=== PATIENT | female | born 1965 ===

== ENCOUNTER 2022-04-15 16:42 | Inpatient (IN) ==
--- NOTE | 2022-04-15 16:44 | Internal Med History&Physical ---
HPI History of Present Illness Patient information: Note initiated : 04/15/22 at 4:43 pm Service Date, if different from initiated Date: [] Patient: Adeline Garland a 56 y/o F admitted on for Unintentional Overdose. Chief Complaint: [] History of present illness: Ms. Garland is a 56 year old F 56-year-old female with overdose of alcohol and home medications. It was reported that she was upset that she is not getting psychiatric assistance and was arranging an inpt stay. She presented to [facility] in [place]. There were no beds in the region, thus the call to our facility. Home medications that she apparently took in excess included Lexapro, Lisinopril, lamotrigine, bupropion, tramadol, gabapentin, meloxicam, hydroxyzine, olanzapine. In the ER she was drowsy but awakens. She is protecting her airway. GCS was 10-11 initially but improved to 13-14 over the course of the ED. Beta-hCG was negative at the outside facility. Salicylate and acetaminophen levels were unremarkable. Elevated blood alcohol level. Metabolic acidosis noted with a CO2 of 17. Chloride 119. She had a corrected QTC of 493. In speaking with the patient as to why she took the medications and what I read in the report the patient responds, "I do not know why I took all his medications". Asked if she wanted to harm her self and she says she does not. She denies any pains or complaints other than feeling hike her "body will not move correctly." She has some shortness of breath but does not know why, she is not hypoxic, appears a mildy anxious. Denies chest pain. She says she drinks daily but could not quantify how much. Denies any drug use other than admitting to using meth several years ago when she was drinking. She does smoke. Review of Systems: Pertinent positives as above. Denies headache/fever/chills/nausea/vomiting/chest or abdominal pain/cough/dyspnea/diarrhea. Remaining 10 point review of system reviewed and negative MEDS/ALLERGIES Home Medications and Allergies Home Medications Medication Instructions Recorded Confirmed Type bupropion HCl 150 mg 24 hr tablet, 150 mg PO DAILY 04/15/22 04/15/22 History extended release escitalopram oxalate 20 mg tablet 20 mg PO QDAY 04/15/22 04/15/22 History estradiol 1 g VAGINAL 3XW 04/15/22 04/15/22 History gabapentin 300 mg capsule 300 mg PO TID 04/15/22 04/15/22 History hydroxyzine HCl 25 mg tablet 25 mg PO QID PRN MDD 24 04/15/22 04/15/22 History lamotrigine 150 mg tablet 150 mg PO QDAY 04/15/22 04/15/22 History lisinopril 10 mg tablet 10 mg PO QDAY 04/15/22 04/15/22 History meloxicam 15 mg tablet 15 mg PO QDAY 04/15/22 04/15/22 History noreth-ethinyl estradiol-iron 1 tab PO DAILY 04/15/22 04/15/22 History olanzapine 5 mg tablet 5 mg PO QDAY 04/15/22 04/15/22 History sumatriptan succinate 25 mg tablet See Rx Instructions .ROUTE 04/15/22 04/15/22 History .COMPLEX PRN MDD 8 Allergies Allergy/AdvReac Type Severity Reaction Status Date / Time No Known Drug Allergies Allergy Unverified 04/15/22 17:48 EXAM Constitutional Exam: General: awake, No acute Distress Eyes/N/T: EOMI, PERRL,dry MM Head/Neck: neck supple, normocephalic atraumatic CV: RRR, No murmurs, normal s1/s2 Pulm: Clear b/l, no wheezing/rhonchi/rales Abd: soft, nontender, +BS x4 Ext: no clubbing/cyanosis/edema Neuro: minimally drowsy but awakens, no focal deficits, moves all extremities to command although poor coordination, CN 2-12 grossly intact, symmetrical strength b/l upper/lower, sensations intact b/l upper/lower Skin: warm/dry A/P Narrative A/P Narrative: A: *intentional Drug OD & Etoh intoxication: Alcothol + Lexapro/Lisinopril/lamotrigine/bupropion/tramadol/gabapentin/meloxicam/hydroxyzi ne/olanzapine -Patient denies wanting to harm her self *Encephalopathy: 2/2 above *prolonged QT *Bipolar d/o, Depression: *h/o etoh abuse *HTN: on lisinopril *Tobacco abuse: P: -ICU monitoring -Monitor vitals and airway closely -Monitor QTC -prn Benzo -CIWA, vitamins, -Tele psych consult -hold home psych meds for now -CM for discharge needs -Smoking/alcohol cessation counseling > 3 minutes -ppx: lovenox Time Spent With Patient Time: Total time spent is greater than 50% in coordination of care (as documented) at patient's floor/unit and/or counseling patient: Total time spent with greater than 50% in coordination of care (as documented) at patient's floor/unit and/or counseling patient:: Greater than 70 minutes
[2022-04-15] MEDS ORDERED: HALOPERIDOL LACTATE 5 MG/ML VIAL IM PRN (16:45)
[2022-04-15] MEDS ORDERED: MAGNESIUM SULFATE 2 GM/50 ML BAG IV PRN (16:45)
[2022-04-15] MEDS ORDERED: POLYETHYLENE GLYCOL 3350 17 GM PACKET PO PRN (16:45)
[2022-04-15] MEDS ORDERED: chlordiazePOXIDE 25 MG CAPSULE PO PRN (16:45)
[2022-04-15] MEDS ORDERED: SENNOSIDES 1 TABLET PO PRN (16:45)
[2022-04-15] MEDS ORDERED: POTASSIUM CHLORIDE 20 MEQ TABLET PO PRN ×2 (16:45)
[2022-04-15] MEDS ORDERED: POTASSIUM CHLORIDE 40 MEQ in DEXTROSE 5% IN WATER 500 ML IV PRN (16:45)
[2022-04-15] MEDS ORDERED: ACETAMINOPHEN 325 MG TABLET PO PRN (16:45)
[2022-04-15] MEDS ORDERED: IPRATROPIUM/ALBUTEROL 3 ML AMPUL.NEB NEB PRN (16:45)
[2022-04-15] MEDS ORDERED: ONDANSETRON 4 MG/2 ML VIAL IV PRN (16:45)
[2022-04-15] MEDS ORDERED: LORazepam 2 MG/ML VIAL IV PRN (16:45)
[2022-04-15] MEDS ORDERED: cloNIDine HCL 0.1 MG TABLET PO PRN (19:30)
[2022-04-15] MEDS ORDERED: DEXTROSE 5%-LR 1,000 ML IV ONE (19:31)
[2022-04-15] MEDS ORDERED: hydrOXYzine 25 MG TABLET PO PRN (19:32)
[2022-04-15] MEDS ORDERED: THIAMINE 100 MG in 0.9 % SODIUM CHLORIDE 50 ML IV SCH (20:00)
[2022-04-15] MEDS: THIAMINE 100 MG in 0.9 % SODIUM CHLORIDE 50 ML IV SCH (20:09)
[2022-04-15] MEDS: DOCUSATE SODIUM 100 MG CAPSULE PO SCH (20:10)
[2022-04-15] MEDS ORDERED: SUMAtriptan SUCCINATE 50 MG TABLET PO PRN (20:11)
[2022-04-15] MEDS ORDERED: THIAMINE 100 MG/ML VIAL ONE (20:13)
[2022-04-15] MEDS ORDERED: NICOTINE 21 MG PATCH TOPICAL SCH (20:15)
[2022-04-15] MEDS ORDERED: FOLIC ACID 1 MG TABLET PO SCH (20:15)
[2022-04-15] MEDS: MELATONIN 3 MG TABLET PO SCH (20:19)
[2022-04-15] MEDS: 0.9 % SODIUM CHLORIDE 10 ML SYRINGE IV SCH (20:19)
[2022-04-15] MEDS ORDERED: 0.9 % SODIUM CHLORIDE 10 ML SYRINGE IV SCH (22:00)
[2022-04-16] MEDS: 0.9 % SODIUM CHLORIDE 10 ML SYRINGE IV SCH ×3 (04:41→20:57)
[2022-04-16 06:11] LABS: Basophils # (Auto) 0.09 K/mcL (0.00-0.30); Basophils % (Auto) 1.3 % (0.0-2.0); Eosinophils # (Auto) 0.28 K/mcL (0.00-0.70); Eosinophils % (Auto) 3.9 % (0.0-7.0); Hemoglobin 10.3 g/dL (11.2-15.7); Lymphocytes # (Auto) 2.59 K/mcL (1.50-4.80); Lymphocytes % (Auto) 36.5 % (15.5-49.0); Mean Cell Volume 102.7 fL (80.0-100.0); Mean Corpuscular HGB Conc 30.3 g/dL (31.0-36.0); Mean Platelet Volume 9.8 fL (7.4-10.4); Monocytes % (Auto) 7.1 % (1.0-12.0); Neutrophils % (Auto) 51.2 % (38.0-78.0); Platelet Count 323 K/mcL (140-440); RBC 3.31 M/mcL (3.59-5.38); Red Cell Distribution Width 15.9 % (11.5-14.5); WBC 7.1 K/mcL (4.5-11.0)
[2022-04-16 06:38] LABS: ALT/SGPT 20 U/L (<40); AST/SGOT 25 U/L (<32); Albumin 3.2 gm/dL (3.2-5.2); Albumin/Globulin Ratio 1.3 (1.0-2.3); Alkaline Phosphatase 62 U/L (39-117); Bilirubin,Direct < 0.2 mg/dL (0-0.3); Bilirubin,Total 0.4 mg/dL (0.1-1.0); Blood Urea Nitrogen 22 mg/dL (6-20); Calcium 7.9 mg/dL (8.6-10.4); Carbon Dioxide 19 mmol/L (22-30); Chloride 112 mmol/L (96-108); Globulin 2.5 gm/dL (2.2-3.7); Glomerular Filtration Rate 82; Glucose 85 mg/dL (70-105); Lactate Dehydrogenase 168 U/L (135-225); Phosphorous 3.2 mg/dL (2.5-4.5); Triglycerides 122 mg/dL (<150); Uric Acid 4.4 mg/dL (2.5-8.0)
[2022-04-16] MEDS: PANTOPRAZOLE 40 MG VIAL IV SCH (07:13)
[2022-04-16] MEDS ORDERED: CALCIUM GLUCONATE 4.65 MEQ/10 ML VIAL IV ONE (07:54)
[2022-04-16] MEDS ORDERED: 0.45 % SODIUM CHLORIDE 1,000 ML IV ONE (07:56)
--- NOTE | 2022-04-16 07:56 | Internal Med Progress Note ---
SUBJECTIVE Subjective Patient information: Note initiated : 04/16/22 at 7:51 am Service Date, if different from initiated Date: [] Patient: Adeline Garland 56 y/o F admitted on 04/15/22 for Drug overdose, AMS, QTC. Chief Complaint: [] Interval history: History of present illness: Ms. Garland is a 56 year old F 56-year-old female with overdose of alcohol and home medications. It was reported that she was upset that she is not getting psychiatric assistance and was arranging an inpt stay. She presented to in [place]. There were no beds in the region, thus the call to our facility. Home medications that she apparently took in excess included Lexapro, Lisinopril, lamotrigine, bupropion, tramadol, gabapentin, meloxicam, hydroxyzine, olanzapine. In the ER she was drowsy but awakens. She is protecting her airway. GCS was 10-11 initially but improved to 13-14 over the course of the ED. Beta-hCG was negative at the outside facility. Salicylate and acetaminophen levels were unremarkable. Elevated blood alcohol level. Metabolic acidosis noted with a CO2 of 17. Chloride 119. She had a corrected QTC of 493. In speaking with the patient as to why she took the medications and what I read in the report the patient responds, "I do not know why I took all his medications". Asked if she wanted to harm her self and she says she does not. She denies any pains or complaints other than feeling hike her "body will not move correctly." She has some shortness of breath but does not know why, she is not hypoxic, appears a mildy anxious. Denies chest pain. She says she drinks daily but could not quantify how much. Denies any drug use other than admitting to using meth several years ago when she was drinking. She does smoke. 04/16 Constitutional Vitals: Vital Signs Temp Pulse Resp BP Pulse Ox 97.5 F 69 13 106/95 97 04/16/22 02:01 04/16/22 07:01 04/16/22 07:01 04/16/22 07:01 04/16/22 07:01 Period Temp Pulse Resp BP Sys/Garcia Pulse Ox Last 24 Hr 97.1 F-98.1 F 68-82 93-135/63-95 95-98 Intake and Output 04/15/22 04/16/22 04/16/22 21:59 05:59 13:59 Intake Total 651 200 Output Total 375 300 Balance 276 -100 Weight 76.657 kg Intake & Output: Intake & Output 04/15/22 04/16/22 04/16/22 21:59 05:59 13:59 Intake Total 651 200 Output Total 375 300 Balance 276 -100 Weight 76.657 kg Intake: IV 51 Vitamin B1 100 mg In Sodium 51 Chloride 0.9% 50 ml @ 50 mls/hr IV DAILY [facility] Rx#:[id number] Oral 600 200 Output: Urine Catheter Amount 375 300 Other: Urine Appearance Clear Clear Uretheral ([place]) Clear Clear Urine Color Bright Yellow Bright Yellow Uretheral ([place]) Pale Pale Urine Odor Normal Normal Exam: General: awake, No acute Distress Eyes/N/T: EOMI, Head/Neck: neck supple, CV: RRR, No murmurs, Pulm: Clear b/l, no wheezing/rhonchi/rales Abd: soft, nontender, +BS x4 Ext: no clubbing/cyanosis/edema Neuro: alert, no focal deficits, moves all extremities to command although poor coordination, Skin: warm/dry OBJ DATA Labs CBC & Chem 7: 04/16/22 05:02 04/16/22 05:02 Labs: Abnormal Lab Results 04/16/22 04/16/22 05:02 05:02 RBC 3.31 L Hgb 10.3 L Hct 34.0 L MCV 102.7 H MCHC 30.3 L RDW 15.9 H Chloride 112 H Carbon Dioxide 19 L BUN 22 H Calcium 7.9 L Total Protein 5.7 L Meds: Medications Acetaminophen (Acetaminophen 325 Mg Tablet) 650 mg PO Q6HP PRN; Protocol PRN Reason: Per Pain Protocol/Fever > 101 Albuterol/Ipratropium (Ipratropium/Albuterol 3 Ml Ampul.Neb) 3 ml NEB Q4HP PRN PRN Reason: Shortness Of Breath Chlordiazepoxide HCl (Chlordiazepoxide 25 Mg Capsule) 25 mg PO Q4HP PRN PRN Reason: Alcohol Withdrawal/Assess CIWA Clonidine HCl (Clonidine Hcl 0.1 Mg Tablet) 0.1 mg PO Q4HP PRN PRN Reason: Hypertension, SBP >150 Docusate Sodium (Docusate Sodium 100 Mg Capsule) 100 mg PO BID [facility] Last Admin: 04/15/22 20:10 Dose: 100 mg Documented by: Enoxaparin Sodium (Enoxaparin 40 Mg/0.4 Ml Syringe) 40 mg SQ DAILY [facility] Folic Acid (Folic Acid 1 Mg Tablet) 1 mg PO DAILY [facility] Haloperidol Lactate (Haloperidol Lactate 5 Mg/Ml Vial) 0.5 mg IM Q2HP PRN PRN Reason: Alcohol Withdrawal/Assess CIWA Hydroxyzine HCl (Hydroxyzine 25 Mg Tablet) 25 mg PO QID PRN PRN Reason: Anxiety Potassium Chloride 40 meq/ (Dextrose) 520 mls @ 130 mls/hr IV UD PRN PRN Reason: Potassium < 3 Magnesium Sulfate (Magnesium Sulfate) 2 gm in 50 mls @ 25 mls/hr IV UD PRN PRN Reason: Magnesium </= 1.6 Thiamine HCl 100 mg/ Sodium (Chloride) 51 mls @ 50 mls/hr IV DAILY [facility] Last Infusion: 04/15/22 21:20 Dose: Infused Documented by: Iron Carb/Multivit/[employer] [place]/Folic Acid (Multivit,Ther Iron,Ca,Fa & Min 1 Tablet) 1 tab PO DAILY [facility] Lamotrigine (Lamotrigine 100 Mg Tablet) 150 mg PO QDAY [facility] Lorazepam (Lorazepam 2 Mg/Ml Vial) 0 mg IV Q4HP PRN; Protocol PRN Reason: Alcohol Withdrawal/Assess CIWA Lorazepam (Lorazepam 2 Mg/Ml Vial) 1 mg IV Q2-4HP PRN PRN Reason: ANXIETY/SEDATION Melatonin (Melatonin 3 Mg Tablet) 6 mg PO QHS [facility] Last Admin: 04/15/22 20:19 Dose: 6 mg Documented by: Nicotine (Nicotine 21 Mg Patch) 21 mg TOPICAL DAILY@1000 [facility] Ondansetron HCl (Ondansetron 4 Mg/2 Ml Vial) 4 mg IV Q4HP PRN PRN Reason: Nausea And Vomiting Pantoprazole Sodium (Pantoprazole 40 Mg Vial) 40 mg IV QAMAC [facility] Last Admin: 04/16/22 07:13 Dose: 40 mg Documented by: Polyethylene Glycol (Polyethylene Glycol 3350 17 Gm Packet) 17 gm PO DAILYP PRN PRN Reason: Constipation Potassium Chloride (Potassium Chloride 20 Meq Tablet) 40 meq PO UD PRN PRN Reason: Potssium is 3-3.5 Potassium Chloride (Potassium Chloride 20 Meq Tablet) 40 meq PO UD PRN PRN Reason: Potassium < 3 Senna (Sennosides 1 Tablet) 2 tab PO DAILYP PRN PRN Reason: Constipation Sodium Chloride (0.9 % Sodium Chloride 10 Ml Syringe) 10 ml IV Q8 [facility] Last Admin: 04/16/22 04:41 Dose: Not Given Documented by: Sumatriptan Succinate (Sumatriptan Succinate 50 Mg Tablet) 25 mg PO .COMPLEX PRN PRN Reason: Migraine Headache A/P Narrative A/P Narrative: A: *intentional Drug OD with Etoh intoxication & now w/d: Alcothol + L exapro/Lisinopril/lamotrigine/bupropion/tramadol/gabapentin/meloxicam/hydroxyzin e/olanzapine -Patient denies wanting to harm her self *Encephalopathy: 2/2 above, improving but worried about worsening etoh w/d *prolonged QT: *Metabolic Acidosis: 2/2 above *volume depletion: *Anemia, macro: *Bipolar d/o, Depression: *h/o etoh abuse with liquor: *HTN: on lisinopril *Tobacco abuse: P: -ICU monitoring -Monitor vitals and airway closely -IVF -Monitor QTC -replete electroytes -prn Benzo -CIWA, vitamins, -Tele psych consult -hold home psych meds for now -check b12/folate -CM for discharge needs -Smoking/alcohol cessation counseling > 3 minutes, nicotine patch -ppx: lovenox Time Spent With Patient Time: Total time spent is greater than 50% in coordination of care (as documented) at patient's floor/unit and/or counseling patient: Total time spent with greater than 50% in coordination of care (as documented) at patient's floor/unit and/or counseling patient:: 35 - 50 minutes QUALITY VTE Deep Vein Thrombosis/Pulmonary Embolism Present on Admission: No
[2022-04-16] MEDS ORDERED: FOLIC ACID 1 MG TABLET PO SCH (09:00)
[2022-04-16] MEDS: CALCIUM GLUCONATE 4.65 MEQ in DEXTROSE 5% IN WATER 50 ML IV SCH ×2 (09:02→10:01)
[2022-04-16] MEDS: ENOXAPARIN 40 MG/0.4 ML SYRINGE SQ SCH (10:00)
[2022-04-16] MEDS: NICOTINE 21 MG PATCH TOPICAL SCH (10:00)
[2022-04-16] MEDS: lamoTRIgine 100 MG TABLET PO SCH (10:00)
[2022-04-16] MEDS: DOCUSATE SODIUM 100 MG CAPSULE PO SCH ×2 (10:00→20:54)
[2022-04-16] MEDS: FOLIC ACID 1 MG TABLET PO SCH (10:00)
[2022-04-16] MEDS: MULTIVIT,THER IRON,CA,FA & MIN 1 TABLET PO SCH (10:00)
[2022-04-16] MEDS: CYANOCOBALAMIN (VITAMIN B-12) 500 MCG TABLET PO SCH (10:42)
[2022-04-16] MEDS: THIAMINE 100 MG in 0.9 % SODIUM CHLORIDE 50 ML IV SCH (10:42)
[2022-04-16] MEDS: MELATONIN 3 MG TABLET PO SCH (20:55)
[2022-04-17] MEDS: 0.9 % SODIUM CHLORIDE 10 ML SYRINGE IV SCH (05:23)
[2022-04-17 06:28] LABS: Basophils # (Auto) 0.07 K/mcL (0.00-0.30); Basophils % (Auto) 1.1 % (0.0-2.0); Eosinophils # (Auto) 0.37 K/mcL (0.00-0.70); Eosinophils % (Auto) 5.8 % (0.0-7.0); Hemoglobin 11.2 g/dL (11.2-15.7); Lymphocytes # (Auto) 1.85 K/mcL (1.50-4.80); Lymphocytes % (Auto) 28.9 % (15.5-49.0); Mean Cell Volume 98.6 fL (80.0-100.0); Mean Platelet Volume 10.1 fL (7.4-10.4); Monocytes # (Auto) 0.48 K/mcL (0.10-0.90); Monocytes % (Auto) 7.5 % (1.0-12.0); Neutrophils % (Auto) 56.7 % (38.0-78.0); Platelet Count 310 K/mcL (140-440); RBC 3.55 M/mcL (3.59-5.38); Red Cell Distribution Width 14.7 % (11.5-14.5); WBC 6.4 K/mcL (4.5-11.0)
[2022-04-17 06:47] LABS: ALT/SGPT 21 U/L (<40); AST/SGOT 27 U/L (<32); Albumin 3.3 gm/dL (3.2-5.2); Albumin/Globulin Ratio 1.3 (1.0-2.3); Alkaline Phosphatase 63 U/L (39-117); Bilirubin,Direct < 0.2 mg/dL (0-0.3); Bilirubin,Total 0.3 mg/dL (0.1-1.0); Blood Urea Nitrogen 17 mg/dL (6-20); Calcium 8.5 mg/dL (8.6-10.4); Carbon Dioxide 18 mmol/L (22-30); Chloride 110 mmol/L (96-108); Globulin 2.5 gm/dL (2.2-3.7); Glomerular Filtration Rate 82; Glucose 90 mg/dL (70-105); Lactate Dehydrogenase 176 U/L (135-225); Phosphorous 3.5 mg/dL (2.5-4.5); Triglycerides 89 mg/dL (<150); Uric Acid 4.8 mg/dL (2.5-8.0)
[2022-04-17] MEDS: PANTOPRAZOLE 40 MG VIAL IV SCH (06:49)
[2022-04-17] MEDS: LORazepam 2 MG/ML VIAL IV PRN ×2 (07:04→10:48)
--- NOTE | 2022-04-17 07:39 | Internal Med Progress Note ---
SUBJECTIVE Subjective Patient information: Note initiated : 04/17/22 at 7:36 am Service Date, if different from initiated Date: [] Patient: Adeline Garland a 56 y/o F admitted on 04/15/22 for Drug overdose, AMS, QTC. Chief Complaint: [] Interval history: History of present illness: Ms. Garland is a 56 year old F 56-year-old female with overdose of alcohol and home medications. It was reported that she was upset that she is not getting psychiatric assistance and was arranging an inpt stay. She presented to [facility] in [place]. There were no beds in the region, thus the call to our facility. Home medications that she apparently took in excess included Lexapro, Lisinopril, lamotrigine, bupropion, tramadol, gabapentin, meloxicam, hydroxyzine, olanzapine. In the ER she was drowsy but awakens. She is protecting her airway. GCS was 10-11 initially but improved to 13-14 over the course of the ED. Beta-hCG was negative at the outside facility. Salicylate and acetaminophen levels were unremarkable. Elevated blood alcohol level. Metabolic acidosis noted with a CO2 of 17. Chloride 119. She had a corrected QTC of 493. In speaking with the patient as to why she took the medications and what I read in the report the patient responds, "I do not know why I took all his medications". Asked if she wanted to harm her self and she says she does not. She denies any pains or complaints other than feeling hike her "body will not move correctly." She has some shortness of breath but does not know why, she is not hypoxic, appears a mildy anxious. Denies chest pain. She says she drinks daily but could not quantify how much. Denies any drug use other than admitting to using meth several years ago when she was drinking. She does smoke. 04/16 Patient feeling much better. Did feel like she was having a little bit of with drawl and was given some Ativan this morning and feels better. Better coordination and her body movements. Psych consult. Review of Systems: denies headache/fever/chills/nausea/vomiting/chest or abdominal pain/cough/dyspnea/diarrhea. Otherwise see above. Constitutional Vitals: Vital Signs Temp Pulse Resp BP Pulse Ox 97.6 F 73 13 133/107 97 04/17/22 02:01 04/17/22 06:01 04/17/22 06:01 04/17/22 06:01 04/17/22 06:01 Period Temp Pulse Resp BP Sys/Garcia Pulse Ox Last 24 Hr 97.1 F-98.3 F 64-82 12-20 108-148/77-107 95-98 Intake and Output 04/16/22 04/17/22 04/17/22 21:59 05:59 13:59 Intake Total 1930 570 Output Total 1700 1400 Balance 230 -830 Weight 78.517 kg Intake & Output: Intake & Output 04/16/22 04/17/22 04/17/22 21:59 05:59 13:59 Intake Total 1930 570 Output Total 1700 1400 Balance 230 -830 Weight 78.517 kg Intake: IV 1000 Sodium Chloride 0.45% 1,000 ml 1000 @ 84 mls/hr IV .[id number] ONE Rx# :[id number] Oral 930 570 Output: Urine Catheter Amount 1375 Void Amount 325 1400 Other: Urine Appearance Sediment Clear Urine Color Straw Pale Urine Odor Normal Normal Exam: General: awake, No acute Distress Eyes/N/T: EOMI, Head/Neck: neck supple, CV: RRR, No murmurs, Pulm: Clear b/l, no wheezing/rhonchi/rales Abd: soft, nontender, +BS x4 Ext: no clubbing/cyanosis/edema Neuro: alert, no focal deficits, moves all extremities Skin: warm/dry OBJ DATA Labs CBC & Chem 7: 04/17/22 05:10 04/17/22 05:10 Labs: Abnormal Lab Results 04/17/22 04/17/22 04/16/22 05:10 05:10 05:02 RBC 3.55 L 3.31 L Hgb 10.3 L Hct 34.0 L MCV 102.7 H MCHC 30.3 L RDW 14.7 H 15.9 H Chloride 110 H Carbon Dioxide 18 L BUN Calcium 8.5 L Total Protein 5.8 L 04/16/22 05:02 RBC Hgb Hct MCV MCHC RDW Chloride 112 H Carbon Dioxide 19 L BUN 22 H Calcium 7.9 L Total Protein 5.7 L Meds: Medications Acetaminophen (Acetaminophen 325 Mg Tablet) 650 mg PO Q6HP PRN; Protocol PRN Reason: Per Pain Protocol/Fever > 101 Albuterol/Ipratropium (Ipratropium/Albuterol 3 Ml Ampul.Neb) 3 ml NEB Q4HP PRN PRN Reason: Shortness Of Breath Chlordiazepoxide HCl (Chlordiazepoxide 25 Mg Capsule) 25 mg PO Q4HP PRN PRN Reason: Alcohol Withdrawal/Assess CIWA Clonidine HCl (Clonidine Hcl 0.1 Mg Tablet) 0.1 mg PO Q4HP PRN PRN Reason: Hypertension, SBP >150 Cyanocobalamin (Cyanocobalamin (Vitamin B-12) 500 Mcg Tablet) 1,000 mcg PO JOSE L Y [facility] Last Admin: 04/16/22 10:42 Dose: 1,000 mcg Documented by: Docusate Sodium (Docusate Sodium 100 Mg Capsule) 100 mg PO BID [facility] Last Admin: 04/16/22 20:54 Dose: 100 mg Documented by: Enoxaparin Sodium (Enoxaparin 40 Mg/0.4 Ml Syringe) 40 mg SQ DAILY [facility] Last Admin: 04/16/22 10:00 Dose: 40 mg Documented by: Folic Acid (Folic Acid 1 Mg Tablet) 1 mg PO DAILY [facility] Last Admin: 04/16/22 10:00 Dose: 1 mg Documented by: Haloperidol Lactate (Haloperidol Lactate 5 Mg/Ml Vial) 0.5 mg IM Q2HP PRN PRN Reason: Alcohol Withdrawal/Assess CIWA Hydroxyzine HCl (Hydroxyzine 25 Mg Tablet) 25 mg PO QID PRN PRN Reason: Anxiety Potassium Chloride 40 meq/ (Dextrose) 520 mls @ 130 mls/hr IV UD PRN PRN Reason: Potassium < 3 Magnesium Sulfate (Magnesium Sulfate) 2 gm in 50 mls @ 25 mls/hr IV UD PRN PRN Reason: Magnesium </= 1.6 Thiamine HCl 100 mg/ Sodium (Chloride) 51 mls @ 50 mls/hr IV DAILY [facility] Last Infusion: 04/16/22 11:44 Dose: Infused Documented by: Iron Carb/Multivit/[place]/Folic Acid (Multivit,Ther Iron,Ca,Fa & Min 1 Tablet) 1 tab PO DAILY [facility] Last Admin: 04/16/22 10:00 Dose: 1 tab Documented by: Lamotrigine (Lamotrigine 100 Mg Tablet) 150 mg PO QDAY [facility] Last Admin: 04/16/22 10:00 Dose: 150 mg Documented by: Lorazepam (Lorazepam 2 Mg/Ml Vial) 0 mg IV Q4HP PRN; Protocol PRN Reason: Alcohol Withdrawal/Assess CIWA Lorazepam (Lorazepam 2 Mg/Ml Vial) 1 mg IV Q2-4HP PRN PRN Reason: ANXIETY/SEDATION Last Admin: 04/17/22 07:04 Dose: 0.5 mg Documented by: Melatonin (Melatonin 3 Mg Tablet) 6 mg PO QHS [facility] Last Admin: 04/16/22 20:55 Dose: 6 mg Documented by: Nicotine (Nicotine 21 Mg Patch) 21 mg TOPICAL DAILY@1000 [facility] Last Admin: 04/16/22 10:00 Dose: 21 mg Documented by: Ondansetron HCl (Ondansetron 4 Mg/2 Ml Vial) 4 mg IV Q4HP PRN PRN Reason: Nausea And Vomiting Pantoprazole Sodium (Pantoprazole 40 Mg Vial) [facility] Last Admin: 04/17/22 06:49 Dose: 40 mg Documented by: Polyethylene Glycol (Polyethylene Glycol 3350 17 Gm Packet) 17 gm PO DAILYP PRN PRN Reason: Constipation Potassium Chloride (Potassium Chloride 20 Meq Tablet) 40 meq PO UD PRN PRN Reason: Potssium is 3-3.5 Potassium Chloride (Potassium Chloride 20 Meq Tablet) 40 meq PO UD PRN PRN Reason: Potassium < 3 Senna (Sennosides 1 Tablet) 2 tab PO DAILYP PRN PRN Reason: Constipation Sodium Chloride (0.9 % Sodium Chloride 10 Ml Syringe) 10 ml IV Q8 [facility] Last Admin: 04/17/22 05:23 Dose: 10 ml Documented by: Sumatriptan Succinate (Sumatriptan Succinate 50 Mg Tablet) 25 mg PO .COMPLEX PRN PRN Reason: Migraine Headache A/P Narrative A/P Narrative: A: *intentional Drug OD with Etoh intoxication & now mild w/d: Alcohol + Lexapro/Lisinopril/lamotrigine/bupropion/tramadol/g abapentin/meloxicam/hydroxyzine/olanzapine -Patient denies wanting to harm her self *Encephalopathy: 2/2 above, improving but worried about worsening etoh w/d *prolonged QT: 2/2 above *Metabolic Acidosis: 2/2 above *volume depletion: improved *Anemia, macro: b12/folate ok *Bipolar d/o, Depression: *h/o etoh abuse with liquor: *HTN: on lisinopril *Tobacco abuse: P: -IVF d/c -Monitor QTC -replete electroytes -prn Benzo -CIWA, vitamins, -Tele psych consult -hold home psych meds for now -CM for discharge needs -Smoking/alcohol cessation counseling, nicotine patch -ppx: lovenox Time Spent With Patient Time: Total time spent is greater than 50% in coordination of care (as documented) at patient's floor/unit and/or counseling patient: Total time spent with greater than 50% in coordination of care (as documented) at patient's floor/unit and/or counseling patient:: 25 - 35 minutes QUALITY VTE Deep Vein Thrombosis/Pulmonary Embolism Present on Admission: No
[2022-04-17] MEDS: ENOXAPARIN 40 MG/0.4 ML SYRINGE SQ SCH (09:03)
[2022-04-17] MEDS: FOLIC ACID 1 MG TABLET PO SCH (09:03)
[2022-04-17] MEDS: MULTIVIT,THER IRON,CA,FA & MIN 1 TABLET PO SCH (09:04)
[2022-04-17] MEDS: CYANOCOBALAMIN (VITAMIN B-12) 500 MCG TABLET PO SCH (09:04)
[2022-04-17] MEDS: DOCUSATE SODIUM 100 MG CAPSULE PO SCH (09:04)
[2022-04-17] MEDS: lamoTRIgine 100 MG TABLET PO SCH (09:08)
[2022-04-17] MEDS: THIAMINE 100 MG in 0.9 % SODIUM CHLORIDE 50 ML IV SCH (09:13)
--- NOTE | 2022-04-17 09:52 | Discharge Summary ---
Discharge Provider Provider IMPORTANT FOLLOW-UP INFORMATION FOR PCP: Patient information: Note initiated : 04/17/22 at 9:51 am Service Date, if different from initiated Date: [] Patient: Adeline Garland 56 y/o F admitted on 04/15/22 for Drug overdose, AMS, QTC. Chief Complaint: [] Date of admission: 04/15/22 19:01 Discharge date: 04/17/22 Primary care physician: Other Provider COURSE Hospital Course Hospital course: History of present illness: Ms. Garland is a 56 year old F 56-year-old female with overdose of alcohol and home medications. It was reported that she was upset that she is not getting psychiatric assistance and was arranging an inpt stay. She presented to [facility] in [place]. There were no beds in the region, thus the call to our facility. Home medications that she apparently took in excess included Lexapro, Lisinopril, lamotrigine, bupropion, tramadol, gabapentin, meloxicam, hydroxyzine, olanzapine. In the ER she was drowsy but awakens. She is protecting her airway. GCS was 10-11 initially but improved to 13-14 over the course of the ED. Beta-hCG was negative at the outside facility. Salicylate and acetaminophen levels were unremarkable. Elevated blood alcohol level. Metabolic acidosis noted with a CO2 of 17. Chloride 119. She had a corrected QTC of 493. In speaking with the patient as to why she took the medications and what I read in the report the patient responds, "I do not know why I took all his medications". Asked if she wanted to harm her self and she says she does not. She denies any pains or complaints other than feeling hike her "body will not move correctly." She has some shortness of breath but does not know why, she is not hypoxic, appears a mildy anxious. Denies chest pain. She says she drinks daily but could not quantify how much. Denies any drug use other than admitting to using meth several years ago when she was drinking. She does smoke. 04/17 Patient feeling much better. Did feel like she was having a little bit of with drawl and was given some Ativan this morning and feels better. Better coordination and her body movements. Psych consult. Patient will go to [facility] detox today in [place]. A: *intentional Drug OD with Etoh intoxication & now mild w/d: Alcohol + Lexapro/Lisinopril/lamotrigine/bupropion/tramadol/gabapentin/meloxicam/hydroxyzi ne/olanzapine -Patient denies wanting to harm her self *Encephalopathy: 2/2 above, improving but worried about worsening etoh w/d *prolonged QT: 2/2 above *Metabolic Acidosis: 2/2 above *volume depletion: improved *Anemia, macro: b12/folate ok *Bipolar d/o, Depression: *h/o etoh abuse with liquor: *HTN: on lisinopril *Tobacco abuse: P: -Follow-up closely with psychiatry, possible inpatient stay Discharge diagnosis: Drug overdose alcohol intoxication withdrawal Encephalopathy prolonged QT m Secondary discharge diagnosis: Anemia bipolar disorder depression alcohol abuse hypertension tobacco abuse Time Spent with Patient Time attestation: Total time spent providing and/or coordinating discharge services: Time spent: Greater than 30 minutes EXAM Constitutional Vitals: Temp Pulse Resp BP Pulse Ox 98.2 F 81 13 146/122 97 04/17/22 08:17 04/17/22 08:17 04/17/22 06:01 04/17/22 08:17 04/17/22 08:17 Discharge Data Data Completed and Pending Labs on day of discharge: Labs from last 24 hours 04/17/22 04/17/22 04/16/22 05:10 05:10 08:51 WBC 6.4 RBC 3.55 L Hgb 11.2 Hct 35.0 MCV 98.6 MCH 31.5 MCHC 32.0 RDW 14.7 H Plt Count 310 MPV 10.1 Neut % (Auto) 56.7 Lymph % (Auto) 28.9 [place] % (Auto) 7.5 Eos % (Auto) 5.8 Baso % (Auto) 1.1 Lymph # (Auto) 1.85 [place] # (Auto) 0.48 Eos # (Auto) 0.37 Baso # (Auto) 0.07 Absolute Neutrophils 3.63 Sodium 137 Potassium 4.5 Chloride 110 H Carbon Dioxide 18 L Anion Gap 9.0 BUN 17 Creatinine 0.8 GFR Calculation 82 Glucose 90 Uric Acid 4.8 Calcium 8.5 L Phosphorus 3.5 Magnesium 1.9 Total Bilirubin 0.3 Direct Bilirubin < 0.2 GGT 21 AST 27 ALT 21 Alkaline Phosphatase 63 Lactate Dehydrogenase 176 Total Protein 5.8 L Albumin 3.3 Globulin 2.5 Albumin/Globulin Ratio 1.3 Triglycerides 89 Vitamin B12 Folate 15.1 04/16/22 08:51 WBC RBC Hgb Hct MCV MCH MCHC RDW Plt Count MPV Neut % (Auto) Lymph % (Auto) [place] % (Auto) Eos % (Auto) Baso % (Auto) Lymph # (Auto) [place] # (Auto) Eos # (Auto) Baso # (Auto) Absolute Neutrophils Sodium Potassium Chloride Carbon Dioxide Anion Gap BUN Creatinine GFR Calculation Glucose Uric Acid Calcium Phosphorus Magnesium Total Bilirubin Direct Bilirubin GGT AST ALT Alkaline Phosphatase Lactate Dehydrogenase Total Protein Albumin Globulin Albumin/Globulin Ratio Triglycerides Vitamin B12 462.1 Folate Discharge Plan Patient/Caregiver Discharge Instructions Activity: increase activity as tolerated Diet: Regular Diet Activity Restrictions/Additional Instructions: Follow-up closely with psychiatry. Will go to [facility] detox today in [place]. Prescriptions: Continued meloxicam 15 mg Tablet 15 mg PO QDAY 0RF sumatriptan succinate 25 mg Tablet See Rx Instructions .ROUTE .COMPLEX MDD 8 PRN (Reason: Migraine Headache) 0RF Rx Instructions: 25 mg orally, may repeat in 2 hours if needed. max 8 tabs in 24 hours. estradiol 0.01 % (0.1 mg/gram) Cream 1 g VAGINAL 3XW 0RF Rx Instructions: Use once daily for 14 dys (started on 04/08/2022) then 2-3 x/wk. escitalopram oxalate 20 mg Tablet 20 mg PO QDAY 0RF lisinopril 10 mg Tablet 10 mg PO QDAY 0RF gabapentin 300 mg Capsule 300 mg PO TID 0RF bupropion HCl 150 mg Tablet Extended Release 24 Hr 150 mg PO DAILY 0RF olanzapine 5 mg Tablet 5 mg PO QDAY 0RF hydroxyzine HCl 25 mg Tablet 25 mg PO QID MDD 24 PRN (Reason: Anxiety) 0RF Rx Instructions: Take 1-4 mg PO PRN anxiety Q6H noreth-ethinyl estradiol-iron 1 tab PO DAILY 0RF Rx Instructions: 1mg-5mcg tab lamotrigine 150 mg Tablet 150 mg PO QDAY 0RF Follow Up Plan Patient Disposition: Home, Self-Care Prognosis: Fair Overall status at discharge: patient is progressing back to baseline Discharge Orders: Discharge Order (Routine); Ordered 04/17/22 Ordered By: Milo Staton QUALITY VTE Deep Vein Thrombosis/Pulmonary Embolism Present on Admission: No
[2022-04-17] MEDS: NICOTINE 21 MG PATCH TOPICAL SCH (09:55)
--- NOTE | 2022-04-18 13:38 | EKG ---
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 Measurements Intervals [place] Rate: 80 P: 58 FL: 155 QRS: 51 QRSD: 90 T: 51 QT: 414 QTc: 478 Interpretive Statements Sinus rhythm Electronically Signed On 04-18-2022 13:38:46 PDT by Jonnathan June M.D. /[id number]
--- NOTE | 2022-04-18 13:41 | EKG ---
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 Measurements Intervals [place] Rate: 72 P: 65 IN: 178 QRS: 62 QRSD: 97 T: 57 QT: 457 QTc: 501 Interpretive Statements Sinus rhythm Borderline prolonged QT interval Electronically Signed On 04-18-2022 13:41:43 PDT by Jonnathan June M.D. /[id number]
--- NOTE | 2022-04-18 13:42 | EKG ---
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 Measurements Intervals [place] Rate: 74 P: 64 FL: 176 QRS: 67 QRSD: 86 T: 59 QT: 428 QTc: 475 Interpretive Statements Sinus rhythm Electronically Signed On 04-18-2022 13:42:28 PDT by Jonnathan June M.D. /[id number]
== END 2022-04-17 12:14 | disposition other institution (70) | DRG 917 ==
LOC: ICU 19:01
PROVIDERS: ADMIT Internal Medicine; ATTEND Internal Medicine